=== PATIENT | female | born 1975 | race Hispanic/Latino ===

== ENCOUNTER 2021-09-16 21:57 | Emergency (ER) | payer BC, OTHER ==
[~2021-09-16] VITALS: Ht 157.5 cm; Wt 89.8 kg
[2021-09-17 01:14] VITALS: BP 121/70
== END 2021-09-17 02:14 | disposition left against medical advice (07) ==
LOC: EDH 21:57
DX: R07.89 Other chest pain (principal); M54.2 Cervicalgia; V49.59XA Passenger injured in collision with other motor vehicles in traffic accident, initial encounter; Y93.89 Activity, other specified; Y92.89 Other specified places as the place of occurrence of the external cause; Y99.8 Other external cause status
CPT/HCPCS: 71045; 72040; 93005